=== PATIENT | female | born 1975 | race Caucasian/White ===

== ENCOUNTER 2017-08-19 18:31 | Emergency (ER) | payer OTHER, MEDICAID ==
[~2017-08-19] VITALS: Ht 157.5 cm; Wt 59.0 kg
[~2017-08-19 18:31] MED LIST: AMOXICILLIN250 MG PO; BACTRIM DS TAB1 EACH PO; BIRTH CONTROL; CATAPRES-TTS 10.1 MG TD; CEPHALEXIN 500500 M2 PO; CLEOCIN HCL150 MG PO; CLEOCIN HCL300 MG PO; DIFLUCAN150 MG PO; FLAGYL500 MG PO; FLEXERIL PO; HYDROCODONE-AP1 EAC6 PO; IBUPROFEN 800800 M1 PO; IBUPROFEN 800800 MG PO; LIDOCAINE VISC100 M1 MM; LIDOCAINE VISC100 M1 SWISH&SPIT; MEDROLDOSEPACK PO; NAPROSYN500 MG PO; NOHOMEMEDICATIONS; NORCO 5-325 TA1 EAC1 PO; NORCO 5-325 TA1 EACH PO; PENICILLIN V P500 MG PO; PENICILLIN VK500 MG PO; PRISTIQ50 MG PO; SEASONIQUE; TRAMADOL 50 MG50 MG PO; UNICOMPLEX M TA1 TA1 PO; VICODIN 5-5001 EACH PO; XANAX 0.5 MG0.5 M1 PO
[2017-08-19] MEDS ORDERED: AMOXIL 875 MG875 M1 PO (19:01)
[2017-08-19] MEDS ORDERED: IBUPROFEN 800800 M1 PO (19:07)
[2017-08-19 19:14] VITALS: BP 122/87
== END 2017-08-19 19:15 | disposition home or self-care (01) ==
LOC: M.ERS 18:31
DX: K02.9 Dental caries, unspecified (principal); F17.210 Nicotine dependence, cigarettes, uncomplicated; Z88.5 Allergy status to narcotic agent; Z88.8 Allergy status to other drugs, medicaments and biological substances

== ENCOUNTER 2021-04-06 19:05 | Emergency (ER) | payer OTHER, MEDICAID ==
[~2021-04-06] VITALS: Ht 157.5 cm; Wt 61.2 kg
[~2021-04-06 19:05] MED LIST changes: +AMOXIL 875 MG875 M1 PO
[2021-04-06] MEDS ORDERED: HYDROCODON-ACE1 EAC7 PO (19:47)
[2021-04-06 19:54] VITALS: BP 126/90
== END 2021-04-06 19:55 | disposition home or self-care (01) ==
LOC: M.ERS 19:05
DX: M25.521 Pain in right elbow (principal); Z98.51 Tubal ligation status; Z88.5 Allergy status to narcotic agent; Z88.8 Allergy status to other drugs, medicaments and biological substances; Y04.2XXA Assault by strike against or bumped into by another person, initial encounter; Y93.89 Activity, other specified; Y92.524 Gas station as the place of occurrence of the external cause; Y99.8 Other external cause status